=== PATIENT | male | born 1945 | race Caucasian/White ===

== ENCOUNTER → 2017-03-22 | Outpatient (CLI) | payer MEDICARE, OTHER ==
--- NOTE | 2017-03-22 15:26 | RAD ---
Indication low back pain. Right leg pain. Chronic. No history of recent injury. AP and lateral views of the lumbar spine were obtained as well as a coned view targeted to the lumbosacral junction. Vertebral height is well maintained. There is some slight disc space narrowing at L3-4 and a minimal amount of anterolisthesis of L3 relative to L4. There is disc space narrowing with associated degenerative endplate changes at L5-S1. There are facet degenerative changes predominantly at L4-5 and L5-S1. An acute bony finding is not seen. Vascular calcification and a vascular stent are noted. 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 No acute finding seen
== END | disposition home or self-care (01) ==
LOC: DXRADRC 14:31
PROVIDERS: ATTEND Physician Assistant
DX: M47.897 Other spondylosis, lumbosacral region (principal); M53.86 Other specified dorsopathies, lumbar region; M79.604 Pain in right leg
CPT/HCPCS: 72100

== ENCOUNTER → 2017-09-14 | Outpatient (CLI) | payer MEDICARE, OTHER ==
[~2017-09-14] MED LIST: BUPIVACAINE MPF 0.25% 10 ML VIAL. ONE; DEXAMETHASONE SOD PHOS 4 MG/ML VIAL ONE; IOHEXOL 300 MG/ML 50 ML VIAL. ONE; LIDOCAINE 1% PF 30 ML VIAL. ONE
== END | disposition home or self-care (01) ==
LOC: SURG 11:57
PROVIDERS: ATTEND Anesthesiology Pain Medicine
DX: M54.16 Radiculopathy, lumbar region (principal); M53.87 Other specified dorsopathies, lumbosacral region; M54.40 Lumbago with sciatica, unspecified side
CPT/HCPCS: 64483; 64484; 99204; J1100; J2001; J3490; Q9967

== ENCOUNTER → 2017-12-07 | Outpatient (CLI) | payer MEDICARE, OTHER | LOC: SURG 11:52 | PROVIDERS: ATTEND Anesthesiology Pain Medicine | DX: M54.16 Radiculopathy, lumbar region (principal); Z95.5 Presence of coronary angioplasty implant and graft | CPT/HCPCS: 64483; 64484; J1100; J2001; J3490; Q9967 ==